=== PATIENT | male | born 1970 | race Caucasian/White ===

== ENCOUNTER → 2017-09-05 | Outpatient (REF) | payer OTHER ==
[2017-09-05 19:46] LABS: HEMATOCRIT 43.8 % (42.0-52.0)
[2017-09-05 20:36] LABS: FERRITIN 280 NG/ML (26-388); IRON (FE) 193 UG/DL (65-175); PERCENT SATURATION 73.4 % (19.7-50.0); TOTAL IRON BINDING CAPACITY 263 UG/DL (250-450)
[2017-09-08 12:06] LABS: PRETREATED FOLATE FOR RBCFOL 13.6 NG/ML; RBC FOLATE 652.1 NG/ML (280-791)
== END ==
LOC: M LAB REF 18:34
DX: E83.110 Hereditary hemochromatosis (principal)
CPT/HCPCS: 83550

== ENCOUNTER → 2018-02-08 | Outpatient (REF) | payer OTHER, BC ==
[2018-02-08 18:50] LABS: FERRITIN 93 NG/ML (26-388); IRON (FE) 174 UG/DL (65-175); PERCENT SATURATION 62.6 % (19.7-50.0); TOTAL IRON BINDING CAPACITY 278 UG/DL (250-450)
== END ==
LOC: M LAB REF 17:36
DX: Z00.00 Encounter for general adult medical examination without abnormal findings (principal)
CPT/HCPCS: 83550

== ENCOUNTER → 2020-04-30 | Outpatient (REF) | payer OTHER, BC ==
[~2020-04-30] MED LIST: NO HOME MEDS; OXYC1TAB23 PO
[2020-05-04 13:10] LABS: FERRITIN 245 NG/ML (26-388); IRON (FE) 153 UG/DL (65-175)
== END ==
LOC: M LAB REF 11:57
PROVIDERS: ATTEND Nurse Practitioner Adult Health
DX: E83.110 Hereditary hemochromatosis (principal)

== ENCOUNTER → 2020-07-08 | Outpatient (CLI) | payer BC, OTHER | LOC: M LABSMTC 12:00 | PROVIDERS: ATTEND Anesthesiology | DX: Z01.812 Encounter for preprocedural laboratory examination (principal) ==

== ENCOUNTER 2020-07-13 08:35 | Day surgery (SDC) | payer BC, OTHER ==
[~2020-07-13] VITALS: Ht 180.3 cm; Wt 112.0 kg
[~2020-07-13 08:35] MED LIST changes: +LIDOCAINE 2% 100MG/5ML SDV (FOR ANES.) As Ordered ONE; +NS 1,000 ML IV ONE; +propofoL 200 MG/20 ML VIAL As Ordered ONE
[2020-07-13] MEDS ORDERED: propofoL 200 MG/20 ML VIAL As Ordered ONE (09:43)
--- NOTE | 2020-07-13 10:04 | ROOR ---
Patient Name: Lalo Mcnally Procedure Date: 07/13/2020 9:29 AM Date of : 1970 Age: 50 Room: [facility] Gender: Male Note Status: Finalized Procedure: Total Colonoscopy to Cecum + Hot Snare Polypectomy + Hemoclips Indications: Screening for colorectal malignant neoplasm Providers: Marlon Phan MD Referring MD: Eleni Szymanski NP Requesting Provider: Medicines: Monitored Anesthesia Care Complications: No immediate complications. Procedure: Pre-Anesthesia Assessment: - The heart rate, respiratory rate, oxygen saturations, blood pressure, adequacy of pulmonary ventilation, and response to care were monitored throughout the procedure. The Colonoscope was introduced through the anus and advanced to the cecum, identified by appendiceal orifice and ileocecal valve. The colonoscopy was performed without difficulty. The patient tolerated the procedure well. The quality of the bowel preparation was excellent. Findings: The perianal and digital rectal examinations were normal. Non-bleeding internal hemorrhoids were found during retroflexion. The hemorrhoids were small and Grade I (internal hemorrhoids that do not prolapse). A medium polyp was found at 25 cm proximal to the anus. The polyp was semi-pedunculated. The polyp was removed with a hot snare. Resection and retrieval were complete. To prevent bleeding after the polypectomy, two hemostatic clips were successfully placed (MR conditional). There was no bleeding at the end of the procedure. An area at 25 cm proximal to the anus was tattooed with an injection of Spot (carbon black). The exam was otherwise without abnormality on direct and retroflexion views. Impression: - Non-bleeding internal hemorrhoids. - One medium polyp at 25 cm proximal to the anus, removed with a hot snare. Resected and retrieved. Clips (MR conditional) were placed. - The examination was otherwise normal on direct and retroflexion views. - An area at 25 cm proximal to the anus was tattooed. - The exam was otherwise normal to the cecum. Recommendation: - Patient has a contact number available for emergencies. The signs and symptoms of potential delayed complications were discussed with the patient. Return to normal activities tomorrow. Written discharge instructions were provided to the patient. - Discharge patient to home. - Continue present medications. - Await pathology results. - Telephone GI clinic for pathology results in 1 week. - Repeat colonoscopy for surveillance based on pathology results. - Return to referring physician. - The findings and recommendations were discussed with the patient. Procedure Code(s): --- Professional --- 81614, Colonoscopy, flexible; with removal of tumor(s), polyp(s), or other lesion(s) by snare technique [id number], Colonoscopy, flexible; with directed submucosal injection(s), any substance Diagnosis Code(s): --- Professional --- Z12.11, Encounter for screening for malignant neoplasm of colon K64.0, First degree hemorrhoids K63.5, Polyp of colon CPT copyright 2019 [employer]. All rights reserved. The codes documented in this report are preliminary and upon infrastructure administrator review may be revised to meet current compliance requirements. Marlon Phan MD Marlon Phan MD 07/13/2020 10:04:23 AM Electronically signed by Marlon Phan MD Number of Addenda: 0 Note Initiated On: 07/13/2020 9:29 AM Estimated Blood Loss: Estimated blood loss: none.
[2020-07-13 10:20] VITALS: BP 142/89
== END 2020-07-13 10:50 | disposition home or self-care (01) ==
LOC: M OPP 08:35
PROVIDERS: ATTEND Internal Medicine Gastroenterology
DX: Z12.11 Encounter for screening for malignant neoplasm of colon (principal); K63.5 Polyp of colon; K64.0 First degree hemorrhoids

== ENCOUNTER → 2020-10-07 | Outpatient (CLI) | payer BC, OTHER ==
[~2020-10-07] MED LIST changes: -LIDOCAINE 2% 100MG/5ML SDV (FOR ANES.) As Ordered ONE; -NS 1,000 ML IV ONE; -propofoL 200 MG/20 ML VIAL As Ordered ONE
== END ==
LOC: M LABSMTC 12:38
PROVIDERS: ATTEND Anesthesiology
DX: Z01.812 Encounter for preprocedural laboratory examination (principal)

== ENCOUNTER 2020-10-12 06:47 | Day surgery (SDC) | payer BC, OTHER ==
[~2020-10-12] VITALS: Ht 180.3 cm; Wt 103.3 kg
[~2020-10-12 06:47] MED LIST changes: +NS 1,000 ML IV ONE
[2020-10-12] MEDS ORDERED: propofoL 200 MG/20 ML VIAL As Ordered ONE (07:23)
[2020-10-12] MEDS ORDERED: LIDOCAINE 2% 100MG/5ML SDV (FOR ANES.) As Ordered ONE (07:23)
--- NOTE | 2020-10-12 08:01 | ROOR ---
Patient Name: Lalo Mcnally Procedure Date: 10/12/2020 7:29 AM Date of : 1970 Age: 50 Room: [facility] Gender: Male Note Status: Finalized Procedure: Total Colonoscopy to Cecum + Biopsy Polypectomy Indications: High risk colon cancer surveillance: Personal history of adenoma with high grade dysplasia Providers: Marlon Phan MD Referring MD: Eleni Szymanski NP Requesting Provider: Medicines: Monitored Anesthesia Care Complications: No immediate complications. Procedure: Pre-Anesthesia Assessment: - The heart rate, respiratory rate, oxygen saturations, blood pressure, adequacy of pulmonary ventilation, and response to care were monitored throughout the procedure. The Colonoscope was introduced through the anus and advanced to the cecum, identified by appendiceal orifice and ileocecal valve. The colonoscopy was performed without difficulty. The patient tolerated the procedure well. The quality of the bowel preparation was excellent. Findings: The perianal and digital rectal examinations were normal. Non-bleeding internal hemorrhoids were found during retroflexion. The hemorrhoids were small and Grade I (internal hemorrhoids that do not prolapse). A tattoo was seen at 25 cm proximal to the anus. A post-polypectomy scar was found at the tattoo site. Biopsies were taken with a cold forceps for histology. Two sessile polyps were found in the rectum. The polyps were diminutive in size. These polyps were removed with a jumbo cold forceps. Resection and retrieval were complete. The exam was otherwise without abnormality on direct and retroflexion views. Impression: - Non-bleeding internal hemorrhoids. - A tattoo was seen at 25 cm proximal to the anus. A post-polypectomy scar was found at the tattoo site. Biopsied. - Two diminutive polyps in the rectum, removed with a jumbo cold forceps. Resected and retrieved. - The examination was otherwise normal on direct and retroflexion views. - The exam was otherwise normal to the cecum. Recommendation: - Patient has a contact number available for emergencies. The signs and symptoms of potential delayed complications were discussed with the patient. Return to normal activities tomorrow. Written discharge instructions were provided to the patient. - Resume previous diet. - Continue present medications. - Await pathology results. - Telephone GI clinic for pathology results in 1 week. - Repeat colonoscopy for surveillance based on pathology results. - Return to referring physician. - The findings and recommendations were discussed with the patient. Procedure Code(s): --- Professional --- 14290, Colonoscopy, flexible; with biopsy, single or multiple Diagnosis Code(s): --- Professional --- Z86.010, Personal history of colonic polyps K64.0, First degree hemorrhoids K62.1, Rectal polyp CPT copyright 2019 [employer]. All rights reserved. The codes documented in this report are preliminary and upon applied psychology teacher review may be revised to meet current compliance requirements. Marlon Phan MD Marlon Phan MD 10/12/2020 8:01:04 AM Electronically signed by Marlon Phan MD Number of Addenda: 0 Note Initiated On: 10/12/2020 7:29 AM Estimated Blood Loss: Estimated blood loss: none.
[2020-10-12 08:19] VITALS: BP 119/79
== END 2020-10-12 08:18 | disposition home or self-care (01) ==
LOC: M OPP 06:47
PROVIDERS: ATTEND Internal Medicine Gastroenterology
DX: K63.5 Polyp of colon (principal); K63.89 Other specified diseases of intestine; K64.0 First degree hemorrhoids; K62.1 Rectal polyp; Z86.010 Personal history of colon polyps; Z09 Encounter for follow-up examination after completed treatment for conditions other than malignant neoplasm

== ENCOUNTER → 2021-07-26 | Outpatient (REF) | payer BC, OTHER ==
[~2021-07-26] MED LIST changes: -NS 1,000 ML IV ONE
[2021-07-26 17:08] LABS: FERRITIN 187 NG/ML (26-388); IRON (FE) 168 UG/DL (65-175)
== END ==
LOC: M LAB REF 15:59
PROVIDERS: ATTEND Nurse Practitioner Adult Health
DX: E83.110 Hereditary hemochromatosis (principal)

== ENCOUNTER → 2022-02-07 | Outpatient (REF) | payer OTHER, BC | LOC: M LAB REF 15:39 | PROVIDERS: ATTEND Nurse Practitioner Adult Health | DX: E83.110 Hereditary hemochromatosis (principal) ==

== ENCOUNTER 2022-10-24 11:51 | Day surgery (SDC) | payer BC, OTHER ==
[~2022-10-24] VITALS: Ht 180.3 cm; Wt 101.2 kg
[~2022-10-24 11:51] MED LIST changes: +NS 1,000 ML IV ONE
[2022-10-24] MEDS ORDERED: propofoL 200 MG/20 ML VIAL As Ordered ONE ×2 (14:05→14:18)
[2022-10-24 14:45] VITALS: BP 121/75
== END 2022-10-24 14:56 | disposition home or self-care (01) ==
LOC: M OPP 11:51
PROVIDERS: ATTEND Internal Medicine Gastroenterology
DX: Z86.010 Personal history of colon polyps (principal); K63.5 Polyp of colon; K57.30 Diverticulosis of large intestine without perforation or abscess without bleeding; K64.0 First degree hemorrhoids

== ENCOUNTER → 2024-08-13 | Outpatient (REF) | payer OTHER ==
[~2024-08-13] MED LIST changes: -NS 1,000 ML IV ONE
[2024-08-17 18:43] LABS: LYME TOTAL ANTIBODY CIA <= 0.90 Index (<=0.90)
[2024-08-19 10:18] LABS: Anaplasma phagocytophilum NOT DETECTED (NOT DETECT); Babesia microti NOT DETECTED (NOT DETECT)
[2024-08-19 15:07] LABS: BORRELIA SPECIES DNA NOT DETECTED (NOT DETECT)
[2024-08-19 15:12] LABS: Ehrlichia chaffeensis NOT DETECTED
== END ==
LOC: M LAB REF 16:41
PROVIDERS: ATTEND Nurse Practitioner Adult Health
DX: E83.110 Hereditary hemochromatosis (principal); Z11.59 Encounter for screening for other viral diseases